=== PATIENT | male | born 1960 | race Caucasian/White ===

== ENCOUNTER 2024-10-21 09:39 | Emergency (ER) | payer OTHER, SELFPAY ==
[2024-10-21 09:45] VITALS: BP 132/86
[2024-10-21] MEDS: VALIUM 5 MG PO (11:38)
[2024-10-21] MEDS: TORADOL 30 MG IM (11:38)
[2024-10-21] MEDS: DECADRON 10 MG PO (11:38)
[2024-10-21 12:00] VITALS: BP 129/67
--- NOTE | 2024-10-21 13:32 | ED.GENMED ---
History of Present Illness
General
Chief Complaint: Musculo-Skeletal Complaint
Source: patient
Exam Limitations: none
Time Seen by Provider: 10/21/24 10:09
Nursing documentation reviewed up to this point in time: agreed with
History of Present Illness
History of Present Illness:
64-year-old male past medical history of hypertension hyperlipidemia, diabetes presenting to the emergency department today with concerns of left-sided neck pain over the past 2 months. Seem to start when he was trying to stop a 30 pound object
from falling with extended left arm. Ongoing pain since but worsening over the past few days. Increased discomfort when extending his neck. Has discomfort that is radiating down his left arm. Denies specific chest pain shortness of breath.
Review of Systems
Review of Systems
Allergies reviewed?: Yes
All Other Systems: ROS reviewed and negative except as documented in HPI and ROS
Phy Exam
Physical Exam
Physical Exam:
GENERAL: Alert , in no apparent distress
EYE: pupils equal and reactive
NECK: Supple, no significant adenopathy.
ENT: o/p clr, mmm.
CARDIAC: Regular rate and rhythm .
LUNGS: Clear breath sounds bilaterally, no acute respiratory distress, no wheezes/rales/rhonchi
ABDOMEN: Soft, without focal tenderness, no r/g, no cvat
NEUROLOGICAL: Alert and oriented, no focal neuro deficits
SKIN: Warm and dry, skin intact.
MUSCULOSKELETAL: Patient preferably holding his head with slight flexion of his neck. Increased discomfort with rotation of his head to the left. Otherwise good strength of the upper extremities bilaterally. No edema, well perfused.
PSYCH: Normal and appropriate interaction.
Course
Orders/Labs/Results
Orders:
Orders
10/21/24 11:33
EKG [Electrocardiogram (*1)] Urgent
Reason for Study: Chest Pain
CT Cervical Spine W/o Iv Contr Urgent
Comment:
Reason For Exam: neck pain
EKG- Treatment ONCE
Dexamethasone [Decadron] 10 mg PO NOW STA
Diazepam [Valium] 5 mg PO NOW STA
Ketorolac [Toradol] 30 mg IM NOW STA
Vital Signs
Initial and Last Documented VS:
Initial Vital Signs
Temp Pulse Resp BP Pulse Ox
98.1 F 95 20 132/86 98
10/21/24 09:45 10/21/24 09:45 10/21/24 09:45 10/21/24 09:45 10/21/24 09:45
Last Documented Vital Signs
Temp Pulse Resp BP Pulse Ox
98.1 F 74 18 130/73 100
10/21/24 09:45 10/21/24 14:40 10/21/24 14:40 10/21/24 14:40 10/21/24 14:40
MDM/Problems Addressed
MDM/Problems Addressed:
64-year-old male presenting to the emergency department today with concerns of neck pain over the past 2 months mainly to the left side with radiating pain down his left arm. Normal neurologic function of the upper extremities on examination no
overlying skin changes no evidence of infection no redness or warmth. Vital signs are normal. Symptoms seem to be radicular discomfort likely mechanical pain from the neck. Patient was given steroid muscle relaxer as well as pain medication.
Symptoms significantly improved after treatment. He had a CT scan of the neck showed disc herniations likely explaining patient's symptoms at this time. He was advised for close follow-up with neurosurgery return precautions were given.
*Critical Care Note
Total Time (30-74mins, 75-104mins- exclusive of procedures): Not Applicable
ED Attending Note
-
Portions of this chart may have been created with voice recognition software.� Occasional wrong word or��sound alike� substitutions may have occurred due to the inherent limitations of voice recognition software.
Discharge Plan
Departure
Patient Disposition: Home (Routine Discharge)
Date of Disposition: 10/21/24
Time of Disposition: 14:27
Patient with high blood pressure during this ER visit?: No
Condition: Good
Covid-19: Not Applicable
Discharge Problem:
Neck pain, Cervical disc herniation, Radicular pain in left arm
Instructions: Muscle and Bone Pain (DC)
Prescriptions:
New
prednisone 50 mg tablet
50 mg PO DAILY 4 Days Qty: 4 0RF
cyclobenzaprine 10 mg tablet
10 mg PO DAILY Qty: 7 0RF
meloxicam 15 mg tablet
15 mg PO DAILY Qty: 10 0RF
Referrals:
Nelson Swanson MD [Active] - Follow up in 5-7 days
Mak Newman DO [Active] - Follow up in 5-7 days
Radha Felton NP [Family Provider] -
Activity Restrictions/Additional Instructions:
You came to the emergency department today with concerns of neck discomfort. Here you had a CT scan that showed evidence of herniated disc. Please use the medications as prescribed and follow-up closely. Return for any worsening, new or
concerning symptoms.
Interventions
Interventions:
*Risk Screen - Suicide Last Done: 10/21/24 09:45
*General Assessment Last Done: 10/21/24 09:45
*Neglect/Abuse Screening Last Done: 10/21/24 09:45
ED- Fall Risk Assessment Last Done: 10/21/24 14:41
*ED COVID-19 Vaccine History Last Done: 10/21/24 10:43
*Nursing Disposition Last Done: 10/21/24 14:41
ED-Musculoskeletal Assessment Last Done: 10/21/24 10:43
Discharge Date and Time
Discharge Date/Time: 10/21/24 14:41
Print Language: WELSH
[2024-10-21 14:40] VITALS: BP 130/73
== END 2024-10-21 14:41 | disposition home or self-care (01) ==
LOC: EMR 09:39
PROVIDERS: EMERGENCY PHYSICIAN Emergency Medicine; FAMILY PHYSICIAN Nurse Practitioner Family
DX: M79.602 Pain in left arm (principal); M50.122 Cervical disc disorder at C5-C6 level with radiculopathy; M50.123 Cervical disc disorder at C6-C7 level with radiculopathy
CPT/HCPCS: 99284; 96372; 72125; 93005